=== PATIENT | female | born 1985 | race Caucasian/White ===

== ENCOUNTER 2017-03-06 07:35 | Emergency (ER) | payer OTHER ==
--- NOTE | 2017-03-06 07:45 | EDPHY ---
H & P Stated Complaint: Passed out Monday;passed out again this am in shower,hit face/tooth HPI/ROS: CHIEF COMPLAINT: Fainted HISTORY OF PRESENT ILLNESS: The patient is a 31 y/o female arriving with her complaining of recurrent loss of consciousness episodes over the last few days. She just returned home from vacation in [place]. Two days ago while sitting and watching "IT" in the theater, she started to feel weird with a racing heart and then doesn't remember anything. She regained consciousness to the sound of her mom screaming her name. She felt confused for a while and her mom described the episode as her slumping over with her hands clenched. She was nauseated for hours afterwards. She had another similar episode without losing consciousness while bending over doing laundry last night. She sat down and the symptoms passed. This morning while showering, she began to feel "weird" again and leaned over her knees. She then woke up with leaning over her. She struck her face and knocked a veneer off her front right incisor, but otherwise denies injury. She has some difficulty describing these episodes and says, "I start to feel out of it and it happens so fast I can't say what's happening. I start to feel warm and tingling and I get a scared feeling,". She has experienced what she was told was a vasovagal episode during a medical procedure in the past. She is normally healthy, but does note she's had intermittent dull headaches for several months. REVIEW OF SYSTEMS: A ten point review of systems was performed and is negative with the exception of the items mentioned in the HPI. Past medical history: Denies Past surgical history: Denies Family history: Noncontributory Social history: at bedside. 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 [facility] PCP - Dr. Calvo General Appearance: Alert. Vital signs reviewed. Blood pressure 116/75, normal heart rate. Head: Central forehead hematoma at hairline, 1.5 cm in diameter. No underlying palpable skull deformity. Eyes: Pupils equal and round, no conjunctival injection, no discharge. Anicteric. ENT, Mouth: Mucous membranes are moist, no oropharyngeal erythema or edema, no hemotympanum. No tongue abrasion/laceration. Neck: No lymphadenopathy, supple. Nontender to palpation over the cervical spine in the midline. Respiratory: Lungs are clear to auscultation; no wheezes, rales, or rhonchi. Cardiovascular: Regular rate and rhythm; no murmur, rub, or gallop. Gastrointestinal: Abdomen is soft and nontender, no masses or organomegaly, bowel sounds normal. Skin: Warm and dry, no rashes on exposed skin, normal color. Back: Nontender to palpation over the thoracolumbar spine. No CVAT. Extremities: No lower extremity edema, no calf tenderness or swelling. Neurological: Alert and oriented. Moving all four extremities easily and equally. Cranial nerves II through XII are examined and are intact (visual acuity not tested). Strength is 5 over 5 bilaterally with testing of all major motor groups. Sensation is intact to light touch over all 4 extremities. Deep tendon reflexes are 2+ in the biceps and knees bilaterally. Gait is normal. [id number] is performed accurately. Psychiatric: Normal affect. - Personal History LMP (Females 10-55): 8-14 Days Ago Current Tetanus Diphtheria and Acellular Pertussis (TDAP): Yes - Medical/Surgical History Hx Asthma: No Hx Chronic Respiratory Disease: No Hx Diabetes: No Hx Cardiac Disease: No Hx Renal Disease: No Hx Cirrhosis: No Hx Alcoholism: No Hx HIV/AIDS: No Hx Splenectomy or Spleen Trauma: No Other PMH: denies - Social History Smoking Status: Never smoked Constitutional: Initial Vital Signs Temperature (C) 36.7 C 03/06/17 07:37 Heart Rate 75 03/06/17 07:37 Respiratory Rate 18 03/06/17 07:37 Blood Pressure 116/75 03/06/17 07:37 O2 Sat (%) 97 03/06/17 07:37 O2 Delivery Mode Room Air Allergies/Adverse Reactions: No Known Allergies Allergy (Verified 03/06/17 07:40) Home Medications: Medication Instructions Recorded levETIRAcetam [Keppra 500 mg (*)] 500 mg PO BID #30 tab 03/06/17 Medical Decision Making - Diagnostics Imaging: Discussed imaging studies w/ call center analyst Radiologist, I viewed and interpreted images myself ED Course/Re-evaluation: This is a 31 y/o female who presents for evaluation of two episodes of loss of consciousness over the last few days. Her story sounds more like a seizure with an aura than a syncopal event. This morning she struck her face and damaged a veneer on her right central incisor and has a forehead cephalohematoma on exam. Her neuro exam is normal. Plan for IV, labs, EKG, and head CT. 1L IV NS administered for possible dehydration that might contribute to syncope. The 12 lead EKG was reviewed by me. Sinus mechanism. No arrhythmia noted. See hard copy and/or "tracemaster" electronic copy for interpretation. Head CT is negative for acute findings. CBC, chemistries, and prolactin reviewed. Her prolactin is elevated at 63.4. Electrolytes normal. No anemia. She is not . I continued to think that these 2 episodes are likely seizure activity and not syncope. I discussed this with the patient and her . She has been advised that she should not drive or engage in other potentially dangerous activities until cleared to do so by her physician. I am recommending follow up with Neurology. She is given a copy of her CT scan and of her laboratories. She is given a dose of IV Keppra in the emergency department and a prescription to start Keppra orally twice daily. I believe that this is her 2nd seizure in the matter of 3-4 days. [id number]: Spoke with [facility] to apprise them of her emergency department visit. I am recommending follow up with Neurology and her PCP. This will be arranged. Differential Diagnosis: Seizure including but not limited to electrolyte abnormality, alcohol withdrawal , medication noncompliance, head injury, and breakthrough seizure. Syncope including but not limited to vasovagal syncope, arrhythmia, dehydration , and blood loss. - Data Points Laboratory Results: Laboratory Results 03/06/17 08:10 03/06/17 08:10 Medications Given: Discontinued Medications Sodium Chloride (Ns) 1,000 mls @ 0 mls/hr IV ONCE ONE; Wide Open PRN Reason: Protocol Stop: 03/06/17 08:03 Last Admin: 03/06/17 08:26 Dose: 1,000 mls Levetiracetam 500 mg/ Sodium (Chloride) 105 mls @ 420 mls/hr IV EDNOW ONE Stop: 03/06/17 10:06 Last Admin: 03/06/17 10:30 Dose: 105 mls Departure - Departure Disposition: Home, Routine, Self-Care Clinical Impression: Seizure Condition: Good Instructions: New-Onset Seizure in Adults (ED) Additional Instructions: 1. Call your [facility] doctor today to arrange follow up with a neurologist this week. 2. Take Keppra as prescribed. I've written a 30-day prescription, but you will need to see a neurologist to determine best long-term management and for further prescriptions. 3. Do not drive or participate in any activity that could put you or others at risk if you have another seizure until cleared by neurologist. 4. Return to the ED for worsening of condition. Referrals: [facility] [Provider Group] - As per Instructions Prescriptions: levETIRAcetam [Keppra 500 mg (*)] 500 mg PO BID #30 tab Report Scribed for: Leana Chávez Report Scribed by: Jennifer Vance Date of Report: 03/06/17 Time of Report: 08:08 Physician Review and Approval Statement: 03/06/17 07:45 Portions of this note were transcribed by the medical research scientist. I, Dr. Leana Chávez, personally performed the history, physical exam, and medical decision- making; and confirmed the accuracy of the information in the transcribed note.
--- NOTE | 2017-03-06 07:50 | CPEKG ---
Heart Rate: 73 RR Interval: 822 P-R Interval: 180 QRSD Interval: 72 QT Interval: 388 QTC Interval: 428 P [place]: 61 QRS [place]: 80 T Wave [place]: 34 EKG Severity - NORMAL ECG - EKG Impression: SINUS RHYTHM Electronically Signed By: Yaron Pedraza 07-Mar-2017 21:04:26
[2017-03-06] MEDS ORDERED: NS 1,000 ML IV ONE (08:02)
[2017-03-06 08:19] LABS: % IMMATURE GRANULYOCYTES 0.3 % (0.0-1.1); ABSOLUTE IMMATURE GRANULOCYTES 0.02 10^3/uL (0.00-0.10); ADD DIFF? NO; ADD MORPH? NO; ADD SCAN? NO; ATYPICAL LYMPHOCYTE FLAG 20 (0-99); FRAGMENT RBC FLAG 0 (0-99); HEMATOCRIT 40.9 % (38.0-47.0); HEMOGLOBIN 13.9 g/dL (12.6-16.3); LEFT SHIFT FLG 0 (0-99); LIPEMIA HEMOLYSIS FLAG 90 (0-99); MEAN CELL HEMOGLOBIN 32.2 pg (27.9-34.1); MEAN CELL VOLUME 94.7 fL (81.5-99.8); MEAN PLATELET VOLUME 9.5 fL (8.7-11.7); PLATELET CLUMPS FLAG 0 (0-99); PLATELET COUNT 272 10^3/uL (150-400); RED BLOOD CELL COUNT 4.32 10^6/uL (4.18-5.33); RED CELL DISTRIBUTION WIDTH 12.1 % (11.5-15.2)
[2017-03-06 08:56] LABS: ANION GAP 13 mEq/L (8-16); CALCIUM 9.9 mg/dL (8.5-10.4); CARBON DIOXIDE 22 mEq/l (22-31); CHLORIDE 107 mEq/L (97-110); CREATININE 0.8 mg/dL (0.6-1.0); GLOMERULAR FILTRATION RATE > 60; GLUCOSE 93 mg/dL (70-100); POTASSIUM 3.8 mEq/L (3.5-5.2); SODIUM 142 mEq/L (134-144)
[2017-03-06 09:12] LABS: PROLACTIN 63.4 ng/mL (3.0-18.6)
[2017-03-06] MEDS ORDERED: levETIRAcetam 500 MG in NS 100 ML IV ONE (09:52)
[2017-03-06 11:57] VITALS: BP 126/81; PULSE 68; RESP 16; TEMP 98.4; O2SAT 95
== END 2017-03-06 11:58 | disposition home or self-care (01) ==
DX: R56.9 Unspecified convulsions (principal); E86.9 Volume depletion, unspecified
CPT/HCPCS: 96374; J1953